=== PATIENT | female | born 1990 | race Two or more races ===

== ENCOUNTER 2024-11-12 08:19 | Outpatient (AMB) | payer MEDICAID, SELFPAY ==
--- NOTE | 2024-11-12 08:25 | OBCLNT_ITS ---
Vital Signs 11/12/24 08:36 Height 1.55 m Height Method Stated Weight 53.127 kg Weight Measurement Method Standing Scale BMI 22.1 BP 123/68 Blood Pressure Source Automatic Cuff Blood Pressure Location Left Upper Arm Position Sitting Respiration 16 Pulse 89 Pulse Source Monitor Temp 97.4 F Temp Source Oral Pulse Oximetry (%) 97 Oxygen Delivery Method Room Air Allergies/Home Meds Allergies & Medications Allergies No Known Allergies Allergy (Verified 11/12/24 08:37) Intake Visit Data Collection New Patient or Established: Established Patient (seen at [facility] within 3 years) Reason for Visit:: TRANSFER, CARE Seen by Clinical Staff ONLY (RN/MA): No Sales & Service Associate Required: No Do You Feel Safe at Home: Yes Authorities Contacted: N/A PCP or OBGYN visit in last 3 months: Yes Hx Now: Yes Are you currently on any form of Control: No Last menstrual period: 04/26/24 Pain Present Currently: No Pain Scale Used: Roberts-Mcfadden/Numerical Pain scale:: 0 Smoking Status Smoking Status: Never smoker Questionnaires Covid-19 Vaccine Questionnaire Has patient been vacinated for Covid-19 Have you been vacinated for Covid-19: Yes PHQ-9 PHQ-2 Over the last 2 weeks, how often have you been bothered by any of the following problems? 1. Little interest or pleasure in doing things: not at all 2. Feeling down, depressed, or hopeless: not at all Total score: 0 PHQ-9 3. Trouble falling or staying asleep, or sleeping too much: Not at all 4. Feeling tired or having little energy: Not at all 5. Poor appetite or overeating: Not at all 6. Feeling bad about yourself - or that you are a failure or have let yourself or your family down: Not at all 7. Trouble concentrating on things, such as reading the newspaper or watching television: Not at all 8. Moving or speaking so slowly that other people could have noticed? - Or the opposite - being so fidgety or restless that you have been moving around a lot more than usual: not at all 9. Thoughts that you would be better off or of hurting yourself in some way: Not at all Total score: 0 Source: Developed by Drs. Scottie Laura, Alize B.W. Jelani Mcmillan and colleagues, with an educational celia from [employer]. Depression screen completed yes Social History Living Situation History Marital Status: Lives With: Family Housing: Apartment Tobacco History Smoking Status: Never smoker Second Hand Smoke Exposure: No Alcohol History Alcohol Intake: Never Domestic Abuse History Do You Feel Safe at Home: Yes Past Medical History Past Medical History Have you ever been diagnosed with any of the following: Reproductive Problems Previous Pregnancies: Yes History of Present Illness HPI Narrative 34 yo for OBI. transfer from Dr Robles with records. LMP 04/19/25. EDC01/23/25, firdt sono;09/09/24. at 22 week. EDC 01/13/25. No PMH,no social habit,no surgery. Low platelet this : 112, 1 hr gtt wnl. NIPT/AFP and carrier screen normal. O+,abs-,rpr;;nr, rub imm, hbsag-,hiv-,GC/CT-. no PTL complaints. fetus active OB Initial Visit OB Flowsheet OB Flowsheet Initial Weight: Not Recorded Date -?-?-?-?-?-?-?-?-?-?-?-?- EGA Weight Edema CTX Effacement BP Fundal ht Pres Dilation Effacement Station Visit Note Alb Glu FHR Mov 11/12/24 -?-?-?-?-?-?-?-?-?-?-?-?- 29w 4d 53.127 kg absent absent 123/68 29 unstable 34 yo IUP @29w6 for OBI, transfer of care from Dr Robles [facility] records. previous delivery prior to 37 week. SAB at 19 week denies PTL complaints at this time,fetus active. discuss PTL symptom. increase fluid and rest. reviewed labs/normal. schedule MFM visit for AMA, OTL precaution, RTC 3 week. patient declined TDAP today 145 active Menstrual History Menstrual reliability: definite Flow: normal Menstrual regularity: regular Monthly: Yes Age at menarche: 12 On control pills at conception: No Associated symptoms (LMP): Reports fatigue OB History : 5 Para: 3 Hx # Pregnancies: 1 Hx Total # of Abortions (Spontaneous & Elective): 1 # of Living Children: 3 Delivery History 1st : Child's name: FAVIAN date: 03/05/09 sex: male Gestational age at delivery (weeks): 40 Delivery type: vaginal Delivery complications: NONE History of depression before or after : No 2nd : Child's name: NANCIE date: 05/17/17 sex: male Gestational age at delivery (weeks): 37 Delivery type: vaginal Delivery complications: NONE History of depression before or after : No 3rd : Child's name: RUI date: 10/29/19 sex: female Gestational age at delivery (weeks): 39 Delivery type: vaginal Delivery complications: NONE History of depression before or after : No Infection History & Risk Evaluation History of STDs: none HIV risk evaluation: low risk Hepatitis B risk evaluation: low risk Patient or partner has history of Genital Herpes: No Genetic Screening & History Genetic Screening/Teratology Counseling - Includes patient, baby's father, or anyone in either family with: 1. Patient's age 35 years or older as of estimated date of delivery: Yes 2. Thalassemia (Setswana, Icelandic, Mediterranean, or Background); MCV less than 80: No 3. Neural Tube Defect (Meningomyelocele, Spina Bifida, or Anencephaly): No 4. Congenital Heart Defect: No 5. Down Syndrome: No 6. Jem-Sachs (Ashkenazi Alevism, Cajun, Vietnamese Campbell): No 7. Brian Disease (Ashkenazi Alevism): No 8. Familial Dysautonomia (Ashkenazi Alevism): No 9. Sickle Cell Disease or Trait (): No 10. Hemophilia or other blood disorders: No 11. Muscular Dystrophy: No 12. Cystic Fibrosis: No 13. Cesar's Chorea: No 14. Mental Retardation/Autism: No 15. Other inherited genetic or chromosomal disorder: No 16. Maternal Metabolic Disorder (EG,TYPE 1 Diabetes, PKU): No 17. Patient or baby's father had a child with defects not listed above: No 18. Recurrent loss or a stillbirth: No 19. Medications (including supplements, vitamins, herbs or otc drugs)/illicit/recreational drugs/alcohol since last menstrual period: No 20. Any other: No Infection History 1. Live with someone with TB or exposed to TB: No 2. Rash or viral illness since last menstrual period: No 3. Hepatitis B,C: No Other (see comments) Source: [employer] Review of Systems Review of Systems Systems Reviewed: All systems reviewed, normal except as documented Constitutional Constitutional: Reports fatigue Endocrine Endocrine: Reports fatigue Exam Narrative Physical exam: hf: 29, fhct 141 General Limitations: no limitations General Appearance: alert, in no apparent distress, comfortable, cooperative, healthy appearing, well developed and well groomed Chest Chest inspection: Present normal inspection and symmetric chest wall rise Resp Respiratory exam: Present normal lung sounds bilaterally Card Cardiovascular exam: Present regular rate, normal rhythm and normal heart sounds Abdominal Abdominal exam: Present soft and normal bowel sounds Psych Psychiatric exam: Present normal affect and normal mood Assessment & Plan Diagnosis / Problem List (1) Supervision of normal intrauterine in multigravida in third trimester: Status: Acute (2) Advanced maternal age (AMA) in : Status: Acute Plan schedule MFM, discuss labs, discuss dates, will date based on mfm sono. continue PNV, patient decline TDAP. increase fluid, PTL precaution, rtc 3 week Additional Plan Follow Up: 3 Weeks (OBC) Office Procedures OB Clinic LOC & Office Proc's Nursing/Assessment Patient Status: Established Patient OB Clinic Nursing Assessment: Medication Reconciliation, Update PMH in EMR and Vital Signs OB Clinic Coordination of Care: AMA, Complex Care and Chronic Disease 1-5, Consent,records obtained, informed consent, Education Simp Pt/Fam, Lab and Imaging orders, Results/Orders obtained and Staff clarify orders Special Needs: Heart tones Miscellaneous Interventions: Blood/Urine Collection Established Patient Charge Established Patient Point Assignment: 185 Established Patient Point Charge: EP Level 5 (160-above)
[2024-11-12 08:36] VITALS: BP 123/68; PULSE 89; RESP 16; TEMP 36.3; O2SAT 97; BMI 22.1
== END 2024-11-12 08:59 | disposition home or self-care (01) ==
LOC: HODSOBC 08:19
PROVIDERS: PCP Advanced Practice Midwife; Referring Provider Advanced Practice Midwife; Supervising Provider Obstetrics & Gynecology; Visit Provider Advanced Practice Midwife
DX: O09.523 Supervision of elderly multigravida, third trimester (principal); Z3A.29 29 weeks gestation of pregnancy
CPT/HCPCS: 81001; 99215; G0463

== ENCOUNTER 2024-12-03 09:46 | Outpatient (AMB) | payer MEDICAID, SELFPAY ==
[2024-12-03 09:51] VITALS: BP 103/67; PULSE 76; RESP 15; TEMP 36.5; O2SAT 97; BMI 22.3
--- NOTE | 2024-12-03 09:51 | AMB.OBVISIT ---
Vital Signs 12/03/24 09:51 Height 1.55 m Height Method Stated Weight 53.581 kg Weight Measurement Method Standing Scale BMI 22.3 BP 103/67 Blood Pressure Source Automatic Cuff Blood Pressure Location Right Upper Arm Position Sitting Respiration 15 Pulse 76 Pulse Source Monitor Temp 97.7 F Temp Source Oral Pulse Oximetry (%) 97 Oxygen Delivery Method Room Air Allergies/Home Meds Allergies & Medications Allergies No Known Allergies Allergy (Verified 12/03/24 09:53) Medication Reconciliation No Known Home Medications 12/03/24 [History Confirmed 12/03/24] Intake Visit Data Collection New Patient or Established: Established Patient (seen at [facility] within 3 years) Reason for Visit:: CARE Seen by Clinical Staff ONLY (RN/MA): No Victim Advocate Required: No Do You Feel Safe at Home: Yes Authorities Contacted: N/A PCP or OBGYN visit in last 3 months: Yes Hx Now: Yes Are you currently on any form of Control: No Pain Present Currently: No Pain Scale Used: Roberts-Mcfadden/Numerical Pain scale:: 0 Smoking Status Smoking Status: Never smoker Questionnaires Covid-19 Vaccine Questionnaire Has patient been vacinated for Covid-19 Have you been vacinated for Covid-19: Yes PHQ-9 PHQ-2 Over the last 2 weeks, how often have you been bothered by any of the following problems? 1. Little interest or pleasure in doing things: not at all 2. Feeling down, depressed, or hopeless: several days Total score: 1 PHQ-9 3. Trouble falling or staying asleep, or sleeping too much: Not at all 4. Feeling tired or having little energy: Not at all 5. Poor appetite or overeating: Not at all 6. Feeling bad about yourself - or that you are a failure or have let yourself or your family down: Not at all 7. Trouble concentrating on things, such as reading the newspaper or watching television: Not at all 8. Moving or speaking so slowly that other people could have noticed? - Or the opposite - being so fidgety or restless that you have been moving around a lot more than usual: not at all 9. Thoughts that you would be better off or of hurting yourself in some way: Not at all Total score: 1 Source: Developed by Alize LopezW. Hipolito, Jelani Kaur and colleagues, with an educational celia from [employer] Depression screen completed yes Social History Living Situation History Lives With: Family Housing: Apartment Tobacco History Smoking Status: Never smoker Second Hand Smoke Exposure: No Alcohol History Alcohol Intake: Never Domestic Abuse History Do You Feel Safe at Home: Yes Care OB Visit Log OB Flowsheet Initial Weight: Not Recorded Date <del>?</del> EGA Weight BP Alb Glu CTX Pres Fundal ht FHR Mov Dilation Station Effacement Hx Notes Visit Note 11/12/24 <del>?</del> 29w 4d 53.127 kg 123/68 absent unstable 29 145 active 34 yo IUP @29w6 for OBI, transfer of care from Dr Robles [facility] records. previous delivery prior to 37 week. SAB at 19 week denies PTL complaints at this time,fetus active. discuss PTL symptom. increase fluid and rest. reviewed labs/normal. schedule MFM visit for AMA, OTL precaution, RTC 3 week. patient declined TDAP today 12/03/24 <del>?</del> 32w 4d 53.581 kg 103/67 absent cephalic 32 135 active doing well. fetus active, no PTL complaints, discuss dates with OB and patient. keep EDC 01/24/25. MFM appointment 12/17, patient concern about low platelets, no c/o bleeding, LOF/UC discuss dates with OB, keep 01/24/25, discuss low plateles with OB, repeat complete CBC with platelets, no vacuum delivery. discuss fkc bid, ptl precaution, MFM appointment 12/17. rtc 2 week RENE Calculator Estimated Delivery Date Method Current WG Current Estimate 01/24/25 LMP (Certain) 32w 4d Other Estimates 01/13/25 Ultrasound #1 34w 1d Notes Visit Date: 12/03/24 Last Updated by: Vicik Allan CNM platelets 11/11: 104, 12 Visit Date: 11/12/24 Last Updated by: Vicki Allan CNM LMP: 04/19/24. EDC01/23/25. . O=,abs-, rpr::nr, rub imm, HBSAG-,HIV-,HC-, GC/CT-, 1 hr gtt wnl. A1:5.6, NIPT and carrier screen-, PLT 4/6:112 Office Procedures OB Clinic LOC & Office Proc's Nursing/Assessment Patient Status: Established Patient OB Clinic Nursing Assessment: Medication Reconciliation, Update PMH in EMR and Vital Signs OB Clinic Coordination of Care: Complex Care and Chronic Disease 1-5, Consent,records obtained, informed consent, Education Simp Pt/Fam, Lab and Imaging orders and Staff clarify orders Special Needs: Heart tones Established Patient Charge Established Patient Point Assignment: 130 Established Patient Point Charge: EP Level 4 (120-155) Assessment & Plan Diagnosis / Problem List (1) Advanced maternal age (AMA) in : Status: Acute Plan discuss platelets with OB, repeat today, discuss dates, keep 01/24/25. reivew FKC with patient and ptl precaution, keep MFM appointment 12/17, hydrate. rtc 2 week Additional Plan Follow Up: 2 Weeks (obc)
== END 2024-12-03 10:08 | disposition home or self-care (01) ==
LOC: HODSOBC 09:46
PROVIDERS: Supervising Provider Advanced Practice Midwife; Visit Provider Advanced Practice Midwife
DX: O09.523 Supervision of elderly multigravida, third trimester (principal); Z3A.32 32 weeks gestation of pregnancy
CPT/HCPCS: 99214; G0463

== ENCOUNTER 2024-12-16 10:55 | Outpatient (AMB) | payer MEDICAID, SELFPAY ==
[2024-12-16 11:23] VITALS: BP 108/66; PULSE 58; RESP 19; TEMP 36.6; O2SAT 97; BMI 35.5
--- NOTE | 2024-12-16 11:23 | OBCLNT_ITS ---
Vital Signs 12/16/24 11:23 Height 1.55 m Height Method Stated Weight 85.332 kg Weight Measurement Method Standing Scale BMI 35.5 BP 108/66 Blood Pressure Source Automatic Cuff Blood Pressure Location Right Upper Arm Position Sitting Respiration 19 Pulse 58 L Pulse Source Monitor Temp 97.8 F Temp Source Temporal Artery Scan Pulse Oximetry (%) 97 Oxygen Delivery Method Room Air Allergies/Home Meds Allergies & Medications Allergies No Known Allergies Allergy (Verified 12/03/24 09:53) Intake Visit Data Collection New Patient or Established: Established Patient (seen at [facility] within 3 years) Reason for Visit:: FOLLOW UP OBC Installation Tech Required: No Do You Feel Safe at Home: Yes Authorities Contacted: N/A PCP or OBGYN visit in last 3 months: Yes Date of Last PCP or OBGYN visit: 12/03/24 Hx Now: Yes Are you currently on any form of Control: No Pain Present Currently: No Smoking Status Smoking Status: Never smoker Questionnaires PHQ-9 PHQ-2 Over the last 2 weeks, how often have you been bothered by any of the following problems? 1. Little interest or pleasure in doing things: not at all PHQ-9 8. Moving or speaking so slowly that other people could have noticed? - Or the opposite - being so fidgety or restless that you have been moving around a lot more than usual: not at all Source: Developed by Drs. Scottie Laura, Alize Mcmillan, Jelani Kaur and colleagues, with an educational celia from [employer]. Social History Living Situation History Lives With: Family Housing: Apartment Tobacco History Smoking Status: Never smoker Second Hand Smoke Exposure: No Alcohol History Alcohol Intake: Never Domestic Abuse History Do You Feel Safe at Home: Yes Care OB Visit Log OB Flowsheet Initial Weight: Not Recorded Date -?-?-?-?-?-?-?-?-?-?-?-?- EGA Weight BP Alb Glu CTX Pres Fundal ht FHR Mov Dilation Station Effacement Hx Notes Visit Note 11/12/24 -?-?-?-?-?-?-?-?-?-?-?-?- 29w 4d 53.127 kg 123/68 absent unstable 29 145 active 34 yo IUP @29w6 for OBI, transfer of care from Dr Robles [facility] records. previous delivery prior to 37 week. SAB at 19 week denies PTL complaints at this time,fetus active. discuss PTL symptom. increase fluid and rest. reviewed labs/normal. schedule MFM visit for AMA, OTL precaution, RTC 3 week. patient declined TDAP today 12/03/24 -?-?-?-?-?-?-?-?-?-?-?-?- 32w 4d 53.581 kg 103/67 absent cephalic 32 135 active doing well. fetus active, no PTL complaints, discuss dates with OB and patient. keep EDC 01/24/25. MFM appointment 12/17, patient concern about low platelets, no c/o bleeding, LOF/UC discuss dates wi th OB, keep 01/24/25, discuss low plateles with OB, repeat complete CBC with platelets, no vacuum delivery. discuss fkc bid, ptl precaution, MFM appointment 12/17. rtc 2 week 12/16/24 -?-?-?-?-?-?-?-?-?-?-?-?- 34w 3d 85.332 kg 108/66 absent cephalic 33 135 active doing well. fetus active, denies leaking/vag bleeding or contraction. platelet decreased. mfm 12/17/24 discuss low plat elets, continue iron, keep mfm appointment. continue PNV, review ptl precaution, hydrate, rtc 2 week. GBS NV with me RENE Calculator Estimated Delivery Date Method Current WG Current Estimate 01/24/25 LMP (Certain) 34w 3d Other Estimates 01/13/25 Ultrasound #1 36w 0d Notes Visit Date: 12/16/24 Last Updated by: Vicki Allan CNM 34 yo , lmp 04/19/25. edc 01/24/25. PIH labs wnl, platelet decreased to 87. Visit Date: 12/03/24 Last Updated by: Vicki Allan CNM platelets 11/11: 104, Visit Date: 11/12/24 Last Updated by: Vicki Allan CNM LMP: 04/19/24. EDC01/23/25. . O=,abs-, rpr::nr, rub imm, HBSAG-,HIV-,HC-, GC/CT-, 1 hr gtt wnl. A1:5.6, NIPT and carrier screen-, PLT /:112 Office Procedures OB Clinic LOC & Office Proc's Nursing/Assessment Patient Status: Established Patient OB Clinic Nursing Assessment: BP Monitoring, Medication Reconciliation, Update PMH in EMR and Vital Signs OB Clinic Coordination of Care: Complex Care and Chronic Disease 1-5, Consent,records obtained, informed consent, Lab and Imaging orders and Results/Orders obtained Special Needs: Heart tones Established Patient Charge Established Patient Point Assignment: 125 Established Patient Point Charge: EP Level 4 (120-155) Assessment & Plan Diagnosis / Problem List (1) Advanced maternal age (AMA) in : Status: Acute (2) Supervision of normal intrauterine in multigravida in third trimester: Status: Acute Plan discuss low platelets. continue PNV. mfm appointment 12/17. discuss labor precaution, fkc bid. discuss comfort measure, increase fluid. rtc 1 week obc Additional Plan Follow Up: 1 Week (obc)
== END 2024-12-16 11:37 | disposition home or self-care (01) ==
PROVIDERS: Supervising Provider Advanced Practice Midwife; Visit Provider Advanced Practice Midwife
DX: O09.523 Supervision of elderly multigravida, third trimester (principal); Z3A.34 34 weeks gestation of pregnancy; O99.113 Other diseases of the blood and blood-forming organs and certain disorders involving the immune mechanism complicating pregnancy, third trimester; D69.6 Thrombocytopenia, unspecified
CPT/HCPCS: 99214; G0463

== ENCOUNTER 2025-01-01 14:19 | Outpatient (AMB) | payer MEDICAID, SELFPAY ==
[2025-01-01 14:48] VITALS: BP 115/78; PULSE 69; RESP 17; TEMP 36.6; O2SAT 98; BMI 22.7
--- NOTE | 2025-01-01 14:48 | OBCLNT_ITS ---
Vital Signs 01/01/25 14:48 Height 1.55 m Height Method Measured Weight 54.601 kg Weight Measurement Method Standing Scale BMI 22.7 BP 115/78 Blood Pressure Source Automatic Cuff Blood Pressure Location Right Upper Arm Position Sitting Respiration 17 Pulse 69 Pulse Source Monitor Temp 97.8 F Temp Source Temporal Artery Scan Pulse Oximetry (%) 98 Oxygen Delivery Method Room Air Allergies/Home Meds Allergies & Medications Allergies No Known Allergies Allergy (Verified 01/01/25 14:49) Medication Reconciliation No Known Home Medications 12/03/24 [History Confirmed 01/01/25] Intake Visit Data Collection New Patient or Established: Established Patient (seen at [facility] within 3 years) Reason for Visit:: OBC\GBS Seen by Clinical Staff ONLY (RN/MA): No Veterans Service Officer Required: No Do You Feel Safe at Home: Yes Authorities Contacted: N/A PCP or OBGYN visit in last 3 months: Yes Date of Last PCP or OBGYN visit: 12/16/24 Hx Now: Yes Are you currently on any form of Control: No Pain Present Currently: No Pain Scale Used: Robetrs-Mcfadden/Numerical Pain scale:: 0 Smoking Status Smoking Status: Never smoker Questionnaires Covid-19 Vaccine Questionnaire Has patient been vacinated for Covid-19 Have you been vacinated for Covid-19: No PHQ-9 PHQ-2 Over the last 2 weeks, how often have you been bothered by any of the following problems? 1. Little interest or pleasure in doing things: not at all 2. Feeling down, depressed, or hopeless: not at all Total score: 0 PHQ-9 3. Trouble falling or staying asleep, or sleeping too much: Not at all 4. Feeling tired or having little energy: Not at all 5. Poor appetite or overeating: Not at all 6. Feeling bad about yourself - or that you are a failure or have let yourself or your family down: Not at all 7. Trouble concentrating on things, such as reading the newspaper or watching television: Not at all 8. Moving or speaking so slowly that other people could have noticed? - Or the opposite - being so fidgety or restless that you have been moving around a lot more than usual: not at all 9. Thoughts that you would be better off or of hurting yourself in some way: Not at all Total score: 0 If you checked off any problems, how difficult have these problems made it for you to do your work, take care of things at home, or get along with other people?: not difficult at all Source: Developed by Drs. Scottie Laura, Alize Mcmillan, Jelani Kaur and colleagues, with an educational celia from [employer]. Depression screen completed yes Social History Living Situation History Lives With: Family Housing: Apartment Tobacco History Smoking Status: Never smoker Second Hand Smoke Exposure: No Alcohol History Alcohol Intake: Never Domestic Abuse History Do You Feel Safe at Home: Yes History of Present Illness HPI Narrative Marina Vega, , presents for routine visit at 36 weeks and 5 days gestation. Patient reports some contractions. Reports good FM. Denies COLIN, VC, and epigastric pain. - Marina Vega is a 34-year-old presenting for routine care at 36 weeks and 5 days gestation. - has been uncomplicated other than gestational thrombocytopenia. - Patient transferred care to this office at [address] Robles with limited records. - History of delivery prior to 37 weeks: - Two previous deliveries at 35 and 36 weeks - One previous delivery at full term - No signs of labor until now. - Patient reports a little bit of contractions when asked about issues. - Recent MFM ultrasound on 12/17/2024 at [facility]. - Results pending - Patient denies any other specific complaints or concerns. Care OB Visit Log OB Flowsheet Initial Weight: Not Recorded Date -?-?-?-?-?-?-?-?-?-?-?-?- EGA Weight BP Alb Glu CTX Pres Fundal ht FHR Mov Dilation Station Effacement Hx Notes Visit Note 11/12/24 -?-?-?-?-?-?-?-?-?-?-?-?- 29w 4d 53.127 kg 123/68 absent unstable 29 145 active 34 yo IUP @29w6 for OBI, transfer of care from Dr Robles [facility] records. previous delivery prior to 37 week. SAB at 19 week denies PTL complaints at this time,fetus active. discuss PTL symptom. increase fluid and rest. reviewed labs/normal. schedule MFM visit for AMA, OTL precaution, RTC 3 week. patient declined TDAP today 12/03/24 -?-?-?-?-?-?-?-?-?-?-?-?- 32w 4d 53.581 kg 103/67 absent cephalic 32 135 active doing well. fetus active, no PTL complaints, discuss dates with OB and patient. keep EDC 01/24/25. MFM appointment 12/17, patient concern about low platelets, no c/o bleeding, LOF/UC discuss dates wi th OB, keep 01/24/25, discuss low plateles with OB, repeat complete CBC with platelets, no vacuum delivery. discuss fkc bid, ptl precaution, MFM appointment 12/17. rtc 2 week 12/16/24 -?-?-?-?-?-?-?-?-?-?-?-?- 34w 3d 85.332 kg 108/66 absent cephalic 33 135 active doing well. fetus active, denies leaking/vag bleeding or contraction. platelet decreased. mfm 12/17/24 discuss low plat elets, continue iron, keep mfm appointment. continue PNV, review ptl precaution, hydrate, rtc 2 week. GBS NV with me 01/01/25 -?-?-?-?-?-?-?-?-?-?-?-?- 36w 5d 54.601 kg 115/78 absent cephalic 37 134 active Reports some contractions, good FM. Denies COLIN/VC/epigastric pain. Hx deliveries at 35w and 36w. Gestational thrombocytopenia. FHR 145. MFM US 12/17/24 pending results. GBS swab collect ed, FU with LUCIANA Allan, prep for potential labor (hospital bag, transport plan), monitor for frequent CTX/ROM/bleeding/decreased FM, await MFM results. RENE Calculator Estimated Delivery Date Method Current WG Current Estimate 01/24/25 LMP (Certain) 37w 0d Other Estimates 01/13/25 Ultrasound #1 38w 4d Notes Visit Date: 12/16/24 Last Updated by: Vicki Allan CNM 34 yo , lmp 04/19/25. edc 01/24/25. PIH labs wnl, platelet decreased to 87. Visit Date: 12/03/24 Last Updated by: Vicki Allan CNM platelets 57: 104, Visit Date: 11/12/24 Last Updated by: Vicki Allan CNM LMP: 04/19/24. EDC01/23/25. . O=,abs-, rpr::nr, rub imm, HBSAG-,HIV-,HC-, GC/CT-, 1 hr gtt wnl. A1:5.6, NIPT and carrier screen-, PLT 4/6:112 Office Procedures OB Clinic LOC & Office Proc's Nursing/Assessment Patient Status: Established Patient OB Clinic Nursing Assessment: Medication Reconciliation, Update PMH in EMR and Vital Signs OB Clinic Coordination of Care: Complex Care and Chronic Disease 1-5, Consent,records obtained, informed consent, 4+ Authorizations needed and Staff clarify orders Special Needs: Heart tones Established Patient Charge Established Patient Point Assignment: 125 Established Patient Point Charge: EP Level 4 (120-155) Assessment & Plan Diagnosis / Problem List (1) Supervision of normal intrauterine in multigravida in third trimester: Status: Acute (2) Advanced maternal age (AMA) in : Status: Acute Plan Problem List - at 36 weeks and 5 days - Gestational thrombocytopenia - History of delivery Assessment at 36 weeks and 5 days gestation presenting for routine care. has been uncomplicated aside from gestational thrombocytopenia. Patient has a history of deliveries at 35 and 36 weeks with her previous pregnancies. Current is progressing normally with heart rate of 145 bpm. Patient reports experiencing some contractions. Recent [facility] ultrasound was performed on 12/17/2024, but results are pending. Group B Streptococcus (GBS) swab collected during this visit. Plan - Schedule next appointment with LUCIANA Allan - Follow up on [facility] ultrasound report from [facility] - Be prepared for potential labor: - Have someone available to take patient to hospital - Pack a hospital bag - Call ambulance in case of emergency - Monitor for signs requiring immediate medical attention: - Frequent contractions - Water breaking - Bleeding - Decreased movement - Group B Streptococcus (GBS) swab collected
== END 2025-01-01 14:57 | disposition home or self-care (01) ==
LOC: HODSOBC 14:19
PROVIDERS: Supervising Provider Obstetrics & Gynecology; Visit Provider Obstetrics & Gynecology
DX: O09.523 Supervision of elderly multigravida, third trimester (principal); O09.213 Supervision of pregnancy with history of pre-term labor, third trimester; O09.893 Supervision of other high risk pregnancies, third trimester; O99.113 Other diseases of the blood and blood-forming organs and certain disorders involving the immune mechanism complicating pregnancy, third trimester; D69.59 Other secondary thrombocytopenia; Z3A.36 36 weeks gestation of pregnancy; Z36.85 Encounter for antenatal screening for Streptococcus B
CPT/HCPCS: 99214; G0463

== ENCOUNTER 2025-01-04 13:20 | Inpatient (IN) | payer MEDICAID, SELFPAY ==
[2025-01-04] VITALS (46 sets, daily range): BP systolic 99–141; BP diastolic 56–82; PULSE 64–104; RESP 16–97; TEMP 36.4–37; O2SAT 89–100; BMI 22.8
--- NOTE | 2025-01-04 13:43 | PD.LDHP ---
Documentation for date of: 01/04/25 OB Labor/Induct. HPI History of Present Illness : 5 Para: 3 Term pregnancies: 1 pregnancies: 2 Living children: 3 History of Abortions: Spontaneous and Elective: 1 History of Vaginal deliveries: 3 History of sections: No RENE: 01/24/25 Gestational Age (weeks): 37 Gestational Age (days): 1 History of present illness: Marina Vega, , presents with IUP 37w1d for labor pains and bleeding and was noted to be 4.5/50/-3/Vtx/I by RN exam. PNC at Dr Robles then transfer to OB clinic at 30 weeks. - has been uncomplicated other than gestational thrombocytopenia. - Patient transferred care to OB Clinic at [address] Robles . - Two previous deliveries at 35 and 36 weeks - One previous delivery at full term - MFM ultrasound on 12/17/2024 at [facility] showed normal anatomy and adequate interval growth a the 29th%. Review of Systems Review of Systems Narrative Review of Systems: Denies any chest pain , palpitations, shortness of breath or lower ext pain. Past Medical History Surgical History SURGICAL: Negative Section Meds Home Medications and Allergies Home Medications ?Medication ?Instructions ?Recorded ?Confirmed ?Type No Known Home Medications 12/03/24 01/04/25 History Allergies Allergy/AdvReac Type Severity Reaction Status Date / Time No Known Allergies Allergy Verified 01/04/25 13:45 OB Exam Physical Exam Vital signs: Pulse Ox 96 01/04/25 13:42 Routine HEENT Exam Comments: Oropharynx and sclera clear Routine Respiratory Exam Comments: CTA B / L Routine Cardiovascular Exam Comments: RRR Routine Abdominal Exam Comments: Gravid consistent with EFW 6.5 lbs Detailed Labor and Delivery Exam Comments: see RN exam Routine Extremities Exam Comments: Nontender Routine Skin Exam Comments: No rashes or lesions OB Results Labs 01/04/25 13:50 Impressions Impression: IUP 37w1d by best dates. Labor Anticipate Informed consent obtained. The patient was made aware of the risks, complications, alternatives and benefits of the proposed procedure and she agrees.
[2025-01-04 14:29] LABS: Basophils # (Auto) 0.0 Thou/mm3 (0.0-0.2); Basophils % (Auto) 1 % (0-2.5); Eosinophils # (Auto) 0.0 Thou/mm3 (0.0-0.5); Eosinophils % (Auto) 0 % (0-10); Hematocrit 38.8 % (36.0-46.0); Hemoglobin 13.7 g/dL (12.0-16.0); Immature Granulocytes Auto 0.04 Thou/mm3 (0.00-0.00); Lymphocytes # (Auto) 1.2 Thou/mm3 (1.0-4.8); Lymphocytes % (Auto) 15 % (10-50); Mean Corpuscular HGB Conc 35.3 g/dl (31.0-37.0); Mean Corpuscular Hemoglobin 29.4 pg (25.0-35.0); Mean Corpuscular Volume 83 fL (80-100); Monocytes # (Auto) 0.8 Thou/mm3 (0.0-0.8); Monocytes % (Auto) 9 % (0-12); Neutrophils # (Auto) 6.1 Thou/mm3 (1.8-7.7); Neutrophils % (Auto) 75 % (37-80); Nucleated Red Blood Cell # 0.00 Thou/mm3 (0.00-0.00); Nucleated Red Blood Cell % 0 /100 WBC (0); Platelet Count 104 Thou/mm3 (140-440); RDW Standard Deviation 40.6 fL (36.4-46.3); Red Blood Count 4.66 Miln/mm3 (4.00-5.20); White Blood Count 8.2 Thou/mm3 (3.6-11.0)
[2025-01-04 14:56] LABS: Syphilis Nonreactive (Nonreactive)
[2025-01-04] MEDS: OXYTOCIN in NS 20 units 20 UNIT/1,000 ML BAG 125 UNIT IV (16:55)
[2025-01-04] MEDS: BENZO/LANO/ALOE (Dermoplast) 60 GM CAN 1 SPRAY TOP (16:56)
[2025-01-04] MEDS: IBUPROFEN TAB 400 MG TABLET 800 MG PO (17:04)
--- NOTE | 2025-01-04 17:21 | PD.LDDS ---
DS: Providers Provider Date of admission: 01/04/25 13:20 Primary care physician: Physician No Primary/Family Admitting Provider: Blaise Gonzalez MD Attending Provider on Admission: Blaise Gonzalez MD Attending Provider on DC: Blaise Gonzalez MD Discharging Provider: Blaise Gonzalez MD DS: Diagnosis Discharge Diagnosis (1) Gestational thrombocytopenia: Status: Acute (2) (normal spontaneous vaginal delivery): Status: Acute Problem List Completed Was Problem List Reviewed/Reconciled?: Yes Summary/Hosp Course Brief History: Marina Vega, , presents with IUP 37w1d for labor pains and bleeding and was noted to be 4.5/50/-3/Vtx/I by RN exam. PNC at Dr Robles then transfer to OB clinic at 30 weeks. - has been uncomplicated other than gestational thrombocytopenia. - Patient transferred care to OB Clinic at [address] Robles . - Two previous deliveries at 35 and 36 weeks - One previous delivery at full term - M ultrasound on 12/17/2024 at [facility] showed normal anatomy and adequate interval growth a the 29th%. Peripartum Data Delivery Method: Normal Vaginal Delivery Episiotomy Description: None complications: none 1: Gender: Male Disposition of : home Time Spent with Patient Time attestation: Total time spent providing and/or coordinating discharge services: Exam Vital Signs Temp Pulse Resp BP Pulse Ox O2 Del Method 98.6 F 72 20 109/63 100 Room Air 01/04/25 13:48 01/04/25 17:06 01/04/25 13:48 01/04/25 17:06 01/04/25 17:18 01/04/25 13:21 Discharge Plan Plan Patient Disposition: HOME (Self Care) Patient condition on transfer: Stable Prescriptions/Referrals Prescriptions/Med Rec: New ibuprofen 600 mg tablet 600 mg PO Q6H PRN (Reason: pain) Qty: 30 0RF Referrals: No Primary/Family,Physician [Primary Care Provider] - Patient/Caregiver Discharge Instructions Discharge Activity: activity as tolerated Other Discharge Activity Instructions:: Follow up office 6 weeks with Primary OB Print Language: Cambodian Stand Alone Forms: Zee Award Info., Patient Portal Info Letter, Work/Release Restrictions Planned Discharge Date 01/05/25
--- NOTE | 2025-01-04 17:23 | OBDSUM_ITS ---
Data (Davis) Data Hx Section: No : 5 Term: 1 : 2 Livin Abortions: Spontaneous & Theraputic: 1 Delivery Data (Davis) Labor Data Initiation of labor: Spontaneous Induction/Augmentation Agent: None ROM date: 01/04/25 ROM time: 16:47 Amniotic membrane rupture type: Artificial Amniotic fluid description: Clear Delivery Data EDC: 01/24/25 EDC calculated by:: LMP/early US confirmation Onset of labor date: 01/04/25 Onset of labor time: 13:30 Complete dilation date: 01/04/25 Complete dilation time: 16:47 [place] delivery date: 01/04/25 delivery time: 16:50 Gestational age (weeks): 37 Gestational age (days): 1 Placenta delivery date: 01/04/25 Placenta delivery time: 16:56 Stage 1 total time: Labor - Stage 1 Duration 3 hours and 17 minutes Delivered by: geiling Delivery nurse: simone Marquez nurse: Subha Counter Supervisor at delivery: No Support person(s) at delivery: Sister of mother Delivery Method Delivery method: Normal Vaginal Delivery Presentation: Vertex position: OA Placenta Placenta delivery description: Spontaneous Cord blood sent to lab: Yes cord blood collection: Cord Blood Type Episiotomy Episiotomy description: None EBL Estimated blood loss (ml): 150 Umbilical Cord cord description: 3 Vessels Data (Davis) [place] Data order: 1 [place]'s gender: Male Identification band number: [id number] weight (gms): 6 lb 0.651 oz Weight (pounds): 6 lbs and 0.7 ozs 1 minute: 9 5 minutes: 9
[2025-01-04 22:35] LABS: Basophils # (Auto) 0.0 Thou/mm3 (0.0-0.2); Basophils % (Auto) 0 % (0-2.5); Eosinophils # (Auto) 0.0 Thou/mm3 (0.0-0.5); Eosinophils % (Auto) 0 % (0-10); Hematocrit 38.2 % (36.0-46.0); Hemoglobin 13.5 g/dL (12.0-16.0); Immature Granulocytes Auto 0.09 Thou/mm3 (0.00-0.00); Lymphocytes # (Auto) 1.1 Thou/mm3 (1.0-4.8); Lymphocytes % (Auto) 7 % (10-50); Mean Corpuscular HGB Conc 35.3 g/dl (31.0-37.0); Mean Corpuscular Hemoglobin 29.2 pg (25.0-35.0); Mean Corpuscular Volume 83 fL (80-100); Monocytes # (Auto) 1.0 Thou/mm3 (0.0-0.8); Monocytes % (Auto) 7 % (0-12); Neutrophils # (Auto) 12.9 Thou/mm3 (1.8-7.7); Neutrophils % (Auto) 86 % (37-80); Nucleated Red Blood Cell # 0.00 Thou/mm3 (0.00-0.00); Nucleated Red Blood Cell % 0 /100 WBC (0); Platelet Count 106 Thou/mm3 (140-440); RDW Standard Deviation 40.3 fL (36.4-46.3); Red Blood Count 4.62 Miln/mm3 (4.00-5.20); White Blood Count 15.1 Thou/mm3 (3.6-11.0)
[2025-01-05] MEDS: IBUPROFEN TAB 400 MG TABLET 800 MG PO ×2 (02:41→11:26)
[2025-01-05 03:54] VITALS: BP 98/63; PULSE 70; RESP 16; TEMP 36.7; O2SAT 98
--- NOTE | 2025-01-05 07:57 | ESPR_ITS ---
Subjective Subjective Interval history: The patient is a 34-year-old G5 now P4014 status post vaginal delivery yesterday at 5 PM. This morning she is resting comfortably in bed. She is working on breast-feeding. Her last babies were early and she had to pump. She is working on the latch. She always has gestational thrombocytopenia but her platelets are stable before delivery is 104 today its 106. She is ready to go home tonight at 24 hours if she is able to go. She denies heavy vaginal bleeding fevers chills. Her pain is controlled with oral ibuprofen. Exam Vital Signs Temp Pulse Resp BP Pulse Ox O2 Del Method 98.1 F 70 16 98/63 98 Room Air 01/05/25 03:54 01/05/25 03:54 01/05/25 03:54 01/05/25 03:54 01/05/25 03:54 01/05/25 03:54 Narrative Exam Patient is alert and oriented x 3. She is cooperative and pleasant. She is in no apparent distress. Fundus is firm at umbilicus and nontender. Extremities show no significant edema or erythema. Objective Labs 01/04/25 22:20 Labs: Laboratory Results - last 24 hr 01/04/25 01/04/25 13:50 22:20 WBC 8.2 15.1 H D RBC 4.66 4.62 Hgb 13.7 13.5 Hct 38.8 38.2 MCV 83 83 MCH 29.4 29.2 MCHC 35.3 35.3 RDW Std Deviation 40.6 40.3 Plt Count 104 L 106 L Neut % (Auto) 75 86 H Lymph % (Auto) 15 7 L [place] % (Auto) 9 7 Eos % (Auto) 0 0 Baso % (Auto) 1 0 Neut # (Auto) 6.1 12.9 H Lymph # (Auto) 1.2 1.1 [place] # (Auto) 0.8 1.0 H Eos # (Auto) 0.0 0.0 Baso # (Auto) 0.0 0.0 Immature Gran # (Auto) 0.04 H 0.09 H Absolute Nucleated RBC 0.00 0.00 Immature Gran % 1 H 1 H Nucleated RBC % 0 0 Syphilis Serology Nonreactive Blood Type O Positive Antibody Screen POSITIVE Antibody Identification Cold Antibody Crossmatch See Detail Blood Bank Wristband ID Yes Assessment & Plan Problem List (1) Gestational thrombocytopenia: Status: Acute Assessment and plan: Platelets are stable from admission at 104 and 106. (2) Term delivered: Status: Acute Assessment and plan: Discharge instructions given. Follow-up in the [place] [facility] clinic in 6 weeks. Time Spent With Patient Time: Total time spent is greater than 50% in coordination of care (as documented) at patient's floor/unit and/or counseling patient: Time with patient: less than 15 minutes
--- NOTE | 2025-01-05 08:02 | PD.LDDS ---
DS: Providers Provider Date of admission: 01/04/25 13:43 Primary care physician: Physician No Primary/Family Admitting Provider: Blaise Gonzalez MD Attending Provider on Admission: Blaise Gonzalez MD Consults: 01/04/25 18:56 Referral Routine Comment: Attending Provider on DC: Sera Toledo MD (OB Clinic) Discharging Provider: Sera Toledo MD (OB Clinic) Anticipated date of discharge: 01/05/25 DS: Diagnosis Discharge Diagnosis (1) Term delivered: Status: Acute Assessment & Plan: Discharge instructions given including no tampons intercourse swimming or bathtubs x 6 weeks. Call for heavy vaginal bleeding, fevers chills or severe depression (2) Gestational thrombocytopenia: Status: Acute Assessment & Plan: Platelets are stable on discharge Problem List Completed Was Problem List Reviewed/Reconciled?: Yes Summary/Hosp Course Brief History: Marina Vega, , presents with IUP 37w1d for labor pains and bleeding and was noted to be 4.5/50/-3/Vtx/I by RN exam. PNC at Dr Robles then transfer to OB clinic at 30 weeks. - has been uncomplicated other than gestational thrombocytopenia. - Patient transferred care to OB Clinic at [address] Robles . - Two previous deliveries at 35 and 36 weeks - One previous delivery at full term - [facility] ultrasound on 12/17/2024 at [facility] showed normal anatomy and adequate interval growth a the 29th%. The patient underwent an uncomplicated vaginal delivery at around 1700 on 01/04/[address] Gonzalez. She delivered over an intact perineum. Please see delivery notes for further details. Her post course was uncomplicated, and she was discharged home day #1 in stable condition Peripartum Data Delivery Method: Normal Vaginal Delivery Episiotomy Description: None Laceration Description: see Delivery Summary complications: none Status at Discharge Cognitive/behavioral status at discharge: Patient is alert and oriented x 3 in no apparent distress Functional status at discharge: independent ambulation Overall status at discharge: patient is progressing back to baseline Time Spent with Patient Time attestation: Total time spent providing and/or coordinating discharge services: Time spent: Less than 30 minutes Specific discharge activities: Pelvic rest x 6 weeks. No intercourse, tampons, douching, bathtubs, or swimming pools x 6 weeks. Exam Vital Signs Temp Pulse Resp BP Pulse Ox O2 Del Method 98.1 F 70 16 98/63 98 Room Air 01/05/25 03:54 01/05/25 03:54 01/05/25 03:54 01/05/25 03:54 01/05/25 03:54 01/05/25 03:54 Narrative Exam Patient is alert and oriented x 3 in no apparent distress fundus is firm at umbilicus extremities show no significant edema or erythema Discharge Plan Plan Patient Disposition: HOME (Self Care) Disposition Comment: Stable Patient condition on transfer: Stable Prescriptions/Referrals Prescriptions/Med Rec: New ibuprofen 600 mg tablet 600 mg PO Q6H PRN (Reason: pain) Qty: 30 0RF Referrals: No Primary/Family,Physician [Primary Care Provider] - Patient/Caregiver Discharge Instructions Discharge Activity: activity as tolerated Other Discharge Activity Instructions:: Follow up office 6 weeks with Primary OB Other Discharge Diet Instructions: General Diet Education Materials: After Delivery Sharps Concerns, Breast Care After , : Caring for Yourself Print Language: St [place] Activity Restrictions/Additional Instructions: No tampons intercourse douching bathtubs or swimming x 6 weeks. Otherwise activity as tolerated. Call for heavy vaginal bleeding, fevers, severe depression. Call area code for an appointment for 6-week check. Stand Alone Forms: Zee Award Info., Patient Portal Info Letter, Work/Release Restrictions Discharge Order Discharge Orders: Discharge (Routine); Ordered 01/05/25 Ordered By: Sera Toledo (OB Clinic) Planned Discharge Date 01/05/25 (2) Gestational thrombocytopenia Qualifiers: Trimester: third trimester Qualified Code(s): O99.113 - Other diseases of the blood and blood-forming organs and certain disorders involving the immune mechanism complicating , third trimester; D69.6 - Thrombocytopenia, unspecified
[2025-01-05 08:36] VITALS: BP 111/65; PULSE 75; RESP 17; TEMP 36.7; O2SAT 97
[2025-01-05 11:42] VITALS: BP 109/70; PULSE 70; RESP 16; TEMP 36.7; O2SAT 99
[2025-01-05 15:54] VITALS: BP 114/69; PULSE 78; RESP 17; TEMP 36.7; O2SAT 99
== END 2025-01-05 18:12 | disposition home or self-care (01) | DRG 560 ==
LOC: S4NX 01-05 06:02 → S4SX 01-05 06:02
PROVIDERS: Admitting Provider Specialist; Visit Provider Specialist
DX: O99.12 Other diseases of the blood and blood-forming organs and certain disorders involving the immune mechanism complicating childbirth (principal); D69.59 Other secondary thrombocytopenia; Z37.0 Single live birth; Z3A.37 37 weeks gestation of pregnancy
CPT/HCPCS: 36415; 59025; 59409; 85025; 86780; 86850; 86870; 86900; 86901; 86921; 86922; 94762; J2590; A9270

== ENCOUNTER 2025-01-18 14:00 | Outpatient (AMB) | payer MEDICAID, SELFPAY ==
[2025-01-18 14:08] VITALS: BP 115/74; PULSE 77; RESP 17; TEMP 36.8; O2SAT 93
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
== END 2025-01-18 14:43 | disposition home or self-care (01) ==
LOC: HODSOBC 14:00
PROVIDERS: Supervising Provider Advanced Practice Midwife; Visit Provider Advanced Practice Midwife
DX: Z39.2 Encounter for routine postpartum follow-up (principal)

== ENCOUNTER 2025-02-11 10:07 | Outpatient (AMB) | payer MEDICAID, SELFPAY ==
[2025-02-11 10:11] VITALS: BP 108/70; PULSE 63; RESP 17; TEMP 36.7; O2SAT 96; BMI 21.5
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
== END 2025-02-11 10:54 | disposition home or self-care (01) ==
LOC: HODSOBC 10:07
PROVIDERS: Supervising Provider Advanced Practice Midwife; Visit Provider Advanced Practice Midwife
DX: Z39.2 Encounter for routine postpartum follow-up (principal)
CPT/HCPCS: Z1038

== ENCOUNTER 2025-03-02 10:06 | Outpatient (AMB) | payer MEDICAID, SELFPAY ==
[2025-03-02 10:34] VITALS: BP 109/66; PULSE 56; RESP 16; TEMP 36.2; O2SAT 98; BMI 21.6
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
== END 2025-03-02 10:58 | disposition home or self-care (01) ==
LOC: HODSOBC 10:06
PROVIDERS: Supervising Provider Advanced Practice Midwife; Visit Provider Advanced Practice Midwife
DX: Z01.411 Encounter for gynecological examination (general) (routine) with abnormal findings (principal); Z11.51 Encounter for screening for human papillomavirus (HPV); N88.8 Other specified noninflammatory disorders of cervix uteri; Z30.41 Encounter for surveillance of contraceptive pills
CPT/HCPCS: 99213; Q0091; G0463